=== PATIENT | female | born 1930 | race Caucasian/White ===

== ENCOUNTER 2016-08-06 23:23 | Inpatient (IN) | payer MEDICARE ==
[~2016-08-06] VITALS: Ht 160 cm; Wt 44.1 kg
[2016-08-07] VITALS (20 sets, daily range): BP systolic 96–169; BP diastolic 54–108; PULSE 79–99; RESP 13–22; O2SAT 86–100
[2016-08-07] MEDS ORDERED: oxyCODONE-Acetamin 5-325 mg Tablet PO ONE (00:05)
--- NOTE | 2016-08-07 00:30 | ED.REPORT ---
HPI-Hip/Pelvis Prob/Inj Date of Service Aug 07, 2016 ED Provider: Dr. Edwards Pt is an 86 year old female presenting to the ED via EMS post GLF complaining of right hip pain. Pt has hx of 4 4inch screws in her right hip after she broke it in the past. Denies numbness or tingling in her legs, headache, or loss of consciousness. Nursing Notes Stated Complaint: R HIP PAIN GLF Chief Complaint: Extremity Trauma Nursing Notes Reviewed: Yes Allergies: Uncoded Allergies: PENNICILLIN (Allergy, Intermediate, hives and rash, 08/07/16) SULPHA (Allergy, Intermediate, 08/07/16) General Time Seen by Provider: 00:36 Chief Complaint Hip injury right Hx Obtained From: Patient, EMS Arrived By: Ambulance Onset Occurred: Just prior to arrival Symptom Duration: Since onset Progression Since Onset: Constant Caused by: Fall on ground Quality: Painful Severity: Current: Severe Severity: Maximum: Severe Recent Healthcare: No recent doctor visit, No recent hospitalization Similar Sx Previous: No Past Medical History Past Medical History GI bleed broken her right hip in the past Past Surgical History Right hip surgery requiring 4 4inch screws Reports: Cholecystectomy Smoking History Unknown if Ever Smoker Ambulatory Status Independent Review of Systems Musculoskeletal: Reports: Joint pain Neurologic: Denies: Change LOC, Headache, Numbness, Syncope Complete sys rev & neg: except as marked. Physical Exam Initial Vital Signs Vital Signs (First) Date Time Temp Pulse Resp B/P Pulse Ox O2 Delivery O2 Flow Rate FiO2 08/07/16 00:15 36.6 89 14 148/108 98 Room Air Initial VS: Reviewed General/Constitutional: Well-developed, Well-nourished Head / Eyes: Atraumatic, Normocephalic, PERRL ENT: Mucous membranes moist, Conjunctiva normal, No scleral icterus Respiratory: Breath sounds normal, Clear to auscultation, No respiratory distress Cardiovascular: Regular rate & rhythm, Heart sounds normal, Intact distal pulses Abdomen / GI: Soft, Non-tender, No guarding, No rebound, No distention Upper Extremities: Vascular intact, Neuro intact, No swelling, No tenderness Skin: Warm, Dry, No cyanosis Neurologic: Alert, Oriented, Nonfocal Psychiatric: Mood/affect normal, Behavior normal, Normal thought content Lower Extremity / Pelvis / MS: Neurologic intact, Vascular intact Right Hip: Positive: Tenderness present... (Severe), Negative: Leg externally rotated, Leg shortened Interpretation & Diagnostics Lab Results Interpretation Result Diagram: 08/07/16 0128 Test 08/07/16 01:28 White Blood Count 5.5th/mm3 (3.8-10.1) Red Blood Count 4.01mil/mm3 (3.90-5.20) Hemoglobin 13.0g/dL (12.0-15.6) Hematocrit 38.2% (35.0-46.0) Mean Corpuscular Volume 95.3fL (81-100) Mean Corpuscular Hemoglobin 32.4pg (27.0-35.0) Mean Corpuscular Hemoglobin Concent 34.0% (32.0-37.0) Red Cell Distribution Width 12.8% (12.3-15.4) Platelet Count 239bil/L (150-400) Neutrophils (%) (Auto) 63.6% (40-74) Lymphocytes (%) (Auto) 16.0% (14-46) Monocytes (%) (Auto) 14.7% (4-12) Eosinophils (%) (Auto) 4.4% (0-5) Basophils (%) (Auto) 1.1% (0-3) Urine Color Yellow (YELLOW) Urine Appearance Clear (CLEAR,HAZY) Urine pH 7.0 (5.0-8.0) Urine Specific [place] 1.010 (1.003-1.035) Urine Protein Negativemg/dL (NEG,TRACE) Urine Glucose (UA) Negativemg/dL (NEGATIVE) Urine Ketones Negativemg/dL (NEGATIVE) Urine Occult Blood Negative (NEGATIVE) Urine Nitrite Negative (NEGATIVE) Urine Bilirubin Negative (NEGATIVE) Urine Urobilinogen Normalmg/dL (NORMAL) Urine Leukocyte Esterase Negative (NEGATIVE) Urine RBC 0-2/hpf (0-2) Urine WBC 0-5/hpf (0-5) Urine Epithelial Cells Occasional/hpf (NONE-MOD) Urine Crystals None seen (NONE SEEN) Urine Bacteria None/hpf (NONE-FEW) Urine Hyaline Casts None/lpf (NONE) Urine Granular Casts None seen (NONE SEEN) Urine Waxy Casts None seen (NONE SEEN) Urine Red Blood Cell Casts None seen (NONE SEEN) Urine White Blood Cell Casts None seen (NONE SEEN) Urine Mucus None seen (None Seen) Urine Trichomonas None seen (NONE SEEN) Urine Yeast None (NONE SEEN) Urinalysis Comment ECG Interpretation ECG Interpretation: Probable left atrial enlargement. RBBB and LPFB. Time: 01:45 Interpreted by: ED physician Normal ECG Interpretation: Normal rate (87), Normal sinus rhythm X-Ray Chest Interpretation Chest Xray Interpretation: COPD. No acute findings. Interpretation / Wet Read by: Wet read ED physician X-Ray Interpretation Xray Interpretation: Hip/Pelvis Xray: Impacted subcapital fracture of hip X-Ray Ordered: Hip right Interpretation / Wet Read by: Wet read ED physician Re-Eval/Medical Decision Med Decision/Clinical Course 86-year-old female status post a fracture, screw fixation, and subsequent screw removal, presents after a ground-level fall with hip pain. There is no foreshortening or rotation, but the hip is indeed fracture and an impaction subcapital configuration. Distal sensation and vascularity are normal. She is admitted to the medicine service with consultation orthopedics for operative management. Transported in stable condition. Re-Evaluation/Progress : Time of Eval: 01:10 Patient Status: Condition improved Re-Evaluation/Progress Note: Discussed radiology results and plan for admission and surgery tomorrow. Consultation : Referral / Consult Name: Aubrey Hoffman MD Consulted With: Hospitalist Call Returned at: 01:26 [employer] Hand: Will see patient, Agrees with plan, Accepts admit Note: Pt will have surgery tomorrow. Counseled Regarding: Diagnosis, Lab results, Need for follow-up, When/why to return to ED Discharge & Departure Impression: Primary Impression: Hip fracture, right Encounter type: initial encounter Fracture type: closed Qualified Code: S72.001A - Fracture of unspecified part of neck of right femur, initial encounter for closed fracture Disposition: ADMITTED TO HOSPITAL Discharge Condition All VS Reviewed: Yes Condition: Improved Referrals: NOPCP (PCP) Gurjit Attestation Portions of this note were transcribed by Violet Vázquez. I, Dr. Edwards personally performed the history, physical exam and medical decision-making; I reviewed and confirmed the accuracy of the information in the transcribed note. Signed by: Gurjit Goldstein, 08/07/2016 at 0158. Delmer Edwards MD Aug 07, 2016 00:29 VIOLET VÁZQUEZ Aug 07, 2016 00:43
[2016-08-07] MEDS ORDERED: Ondansetron 2 mg/mL 2 mL Inj IVPUSH ONE (01:05)
[2016-08-07 01:37] LABS: BASOPHILS % (AUTO) 1.1 % (0-3); EOSINOPHILS % (AUTO) 4.4 % (0-5); MONOCYTES % (AUTO) 14.7 % (4-12); Mean Corpuscular Hemoglobin 32.4 pg (27.0-35.0); Mean Corpuscular Volume 95.3 fL (81-100); NEUTROPHILS % (AUTO) 63.6 % (40-74); Platelet Count 239 bil/L (150-400)
[2016-08-07] MEDS: HYDROmorphone 0.5 mg/0.5 mL iSecure Syringe IVPUSH PRN ×3 (01:38→03:43)
[2016-08-07 01:50] LABS: APPEARANCE,URINE CLEAR (CLEAR,HAZY); COLOR,URINE YELLOW (YELLOW); OCCULT BLOOD,URINE NEGATIVE (NEGATIVE); UROBILINOGEN,URINE NORMAL (NORMAL)
[2016-08-07 01:56] LABS: INR 0.94 ratio
[2016-08-07 02:02] LABS: TROPONIN T 0.01 ug/L (0.0-0.011)
[2016-08-07] MEDS ORDERED: Alum-Mag Hydrox-Simeth 30 mL Suspension PO PRN (02:05)
[2016-08-07] MEDS ORDERED: Polyethylene Glycol (PEG) 17 Gm Powder PO PRN ×2 (02:05→10:45)
[2016-08-07] MEDS ORDERED: Ondansetron 2 mg/mL 2 mL Inj IVPUSH PRN ×2 (02:05→10:45)
[2016-08-07] MEDS ORDERED: 0.9% Sodium Chloride 1,000 ML IV SCH (02:05)
[2016-08-07 02:14] LABS: Magnesium 1.9 mg/dL (1.6-2.6)
--- NOTE | 2016-08-07 02:18 | PCM.HPMED ---
Subjective Date of Service Aug 07, 2016 Primary Provider: Admitting Physician: Primary Care Physician: Dalton Attending Physician: Admit Status: From the Emergency Department, Remote Telemetry Chief Complaint: Impacted subcapital fracture right hip secondary to ground-level fall History of Present Illness: Ms. Kraft is an extremely pleasant 86-year-old female with a history of COPD with emphysema, current tobacco use, history of right hip fracture status post repair, and colonic bleed of uncertain etiology that has required transfusions in the past, presented to [facility] with ground-level fall secondary to poor footing. She was admitted for evaluation and treatment of what was found to be a right impacted subcapital fracture of the hip. Hospital day 1 Ms. Kraft shares that she just arrived to [facility] a mere 30 minutes before her ground-level fall which brings her in this evening. She states when she arrived at her family's home, she needed to use the restroom, and on the way , she tripped over her granddaughter's item. Ms. Kraft denies striking her head , loss of consciousness, any other injuries. She notes that she has a pre- existing repair of her right hip, and that injury was also not sustained from episodes of syncope, dysrhythmia, or other biological entity. The initial injury was sustained from an external force which brought her to the ground and caused the fracture. Fracture was actually repaired locally, in [place], by Dr. Murray. For this episode, patient denies any associated fever, chills, nausea, vomiting, diarrhea, constipation, dysuria, acute vision changes, palpitations, chest pain, lightheadedness, or dizziness. She just arrived from [place], [place], which is where she has been residing over recent years. She shares that she is actually scheduled for a procedure at the [facility] this upcoming Saturday, 08/10, with Dr. Jericho Jeronimo. The procedure is described as a scope the only placed through her esophagus into her colon to stop a chronic and subclinical bleed. She is uncertain of the actual diagnosis , but she is in the [facility] to proceed with this procedure. Patient has not been on any blood thinners or aspirin. Other than her history of fall, restless legs, high blood pressure, and COPD with emphysema, she states she is rather healthy and independent at baseline. In the ED, T 36.6, pulse 89, respiratory rate 14, blood pressure 148/108, 98% on room air; initial labs revealed WBC 5.5, hemoglobin 13.0, hematocrit 38.2, platelets 239; CMP pending at time of admission; INR 0.94; UA obtained, negative for occult blood, nitrites, leukocyte esterase, and bacteria. She was in stable condition at time of admission awaiting transfer to floor. Review of Systems: Complete ROS obtained; pertinent positives and negatives as noted above Allergies Coded Allergies: Penicillins (Unverified Allergy, Unknown, Hives, 08/07/16) HIVES AND RASH Sulfa (Sulfonamide Antibiotics) (Unverified Allergy, Unknown, 08/07/16) Home Medications List provided by patient: Ropinirole 0.5 mg 3 times daily Alprazolam 0.5 mg 3 times as needed Citalopram 20 mg once daily Ferrous sulfate 325 mg twice daily Pantoprazole 40 mg daily Rosuvastatin 10 mg nightly/simvastatin 40 mg nightly Valsartan 160 mg daily Vitamin C 500 mg twice daily Super B complex vitamin daily Calcium 600 mg plus vitamin D 3 800 international units 3 times daily Complete multivitamin Spiriva Ventolin PMH History obtained from patient: Colonic bleed of uncertain etiology requiring transfusions History of right hip fracture status post repair Restless leg syndrome High cholesterol Hypertension Surgical History Acute anemia status post transfusions Right hip repair secondary to ground-level fall Cholecystectomy Tonsillectomy Hysterectomy Family History Patient states early of father, possibly cardiac Social History Hx Alcohol Use: No Hx Substance Use: No Smoking Status: Current Every Day Smoker (approximately 0.5 packs per day) Living Arrangement: with Family ([place]) Exam Vital Signs Vital Sign - Last Date Time Temp Pulse Resp B/P Pulse Ox O2 Delivery O2 Flow Rate FiO2 08/07/16 00:15 36.6 89 14 148/108 98 Room Air Exam General: Alert and oriented 3, no acute distress, appears frail and thin HEENT: Atraumatic, sclera anicteric, no conjunctival hemorrhage, he is membranes moist Cardiac: Regular rate and rhythm at time of examination Respiratory: Adequate airflow all cronin, no use of accessory muscles, no wheeze or rhonchi appreciated Abdomen: Soft, nontender, nondistended, thin MSK: Able to move all extremities against gravity Pulses: Radial: Bilateral; posterior tibialis equal and bilateral; capillary refill upper and lower extremities less than 2 seconds Extremities: Thin, no edema appreciated Skin: Warm and dry Neuro: Cranial nerves II through XII grossly intact, facial expression symmetric , speech without slurring Psych: Appropriate mood, affect, and responses to questioning; good insight and judgment Lab and Diagnostics Result Diagram: 08/07/16 0128 Assessment & Plan Ms. Kraft is an extremely pleasant 86-year-old female with a history of COPD with emphysema, current tobacco use, history of right hip fracture status post repair, and colonic bleed of uncertain etiology that has required transfusions in the past, presented to [facility] with ground-level fall secondary to poor footing. She was admitted for evaluation and treatment of what was found to be a right impacted subcapital fracture of the hip. Hospital day 1 Acute right impacted subcapital fracture of hip, present on admission. Under evaluation - Ortho in am - Consult order placed; follow-up with verbal report - NPO - Tele - Continuous pulse ox/pain meds Chronic anemia secondary to nonspecific colon abnormality. Presumed stable - H&H stable on admission - Possibly AVMs? Patient is unsure what the exact Dx is - GI: Dr. Jericho Jeronimo; procedure scheduled 08/10/2016 - Monitor COPD with emphysema. Presumed stable - Duoneb QIDWA + accuneb q2h prn Restless leg syndrome, chronic. Managed - Continue home Requip Severe protein-calorie malnutrition, chronic. Presumed stable - On admit: BMI 16; albumin 4.2 - Dietary consultation to improve nutrition Goals of care - Patient has chosen full code at this time - Her wishes are that she be resuscitated until her family is able to be at her bedside - Some of her family remains in [place]; she would like to give him ample time to come here to see their goodbyes if needed - Family and patient wish assistance in rescheduling procedure, in addition to continuance of care for her return home 08/21/2016 - Patient wishes to return to [place] in August Medication reconciliation not yet completed at time of admission; did continue patient's home Requip, in addition to antianxiety as needed and pain medications as needed PRN: Fever/bowel/pain/nausea DVT: SCDs only at this time GI: PPI Diet: NPO for procedure CODE STATUS: Full code Patient status: Due to severity of presenting symptoms, risk of adverse events, and likely course of care, patient likely to remain in-house greater than 2 nights, patient admitted as inpatient status Pain Evaluation: Adequate Pain Control GI Prophylaxis: Proton Pump Inhibitor Resuscitation Status: CPR: Attempt Resuscitation Attending Statement The patient was seen and examined together with Dr. Caldera on 08/07 and I agree with the history, exam and plan as outlined in the note above. Marisabel Caldera DO Aug 07, 2016 02:18 Aubrey Hoffman MD Aug 07, 2016 03:37
[2016-08-07] MEDS ORDERED: ALPRAZolam 0.5 mg Tablet PO PRN (02:35)
[2016-08-07] MEDS ORDERED: Albuterol 2.5 mg/3 mL Inhalation Solution NEB PRN (02:35)
[2016-08-07] MEDS ORDERED: HYDROmorphone 0.5 mg/0.5 mL iSecure Syringe IVPUSH PRN ×2 (02:35→05:00)
--- NOTE | 2016-08-07 04:24 | NUR ---
Admit Pt arrived on unit at 0245 from ED. She just arrived in [place] and had a fall at her daughters. Pt has a fractured right hip. Pt A/O x4, oriented to room, call light and bed controls. Pt rates px 12/23-01/22. Pt is FULL CODE, but has no advance directive. Medication rec not completed due to Pt not remembering what she takes other than RLS med and ASA and ASA is on hold. She is scheduled for an endosocopy on saturday at [facility] Pt given 0.5ml Dilaudid and has [employer] and tele on. Bed down low, call light in reach. Care continues
[2016-08-07 05:41] LABS: BASOPHILS % (AUTO) 0.4 % (0-3); EOSINOPHILS % (AUTO) 2.1 % (0-5); MONOCYTES % (AUTO) 10.3 % (4-12); Mean Corpuscular Hemoglobin 32.2 pg (27.0-35.0); Mean Corpuscular Volume 95.3 fL (81-100); NEUTROPHILS % (AUTO) 78.6 % (40-74); Platelet Count 234 bil/L (150-400)
[2016-08-07] MEDS: Albuterol-Ipratropium 3 mL Inhalation Solution NEB SCH ×4 (06:00→19:45)
[2016-08-07 06:03] LABS: Magnesium 1.9 mg/dL (1.6-2.6); Phosphorus 3.7 mg/dL (2.5-4.9)
[2016-08-07] MEDS: Pantoprazole 4 mg/mL 10 mL Inj IVPUSH SCH (07:48)
--- NOTE | 2016-08-07 08:30 | NUR ---
LEFT FLOOR TO OR 1mg IV dilaudid was given to patient @ 0755 for 8/10 sharp, stabbing pain. Patient's IV was saline locked. Telemetry box removed. SCD placed on left leg. Consent signed by patient with Dr. Spence. Left in hospital bed to go to OR.
--- NOTE | 2016-08-07 08:35 | PCM.HPANE ---
Patient Data Date of Service: Aug 07, 2016 (0830) Surgeon Admitting Provider:Aubrey Hoffman MD Attending Provider:Aubrey Hoffman MD Primary Care Physician:Dalton Other Provider:Heidi Acosta Anesthesia Reason for Visit R Hip Fracture Ht/WT & BMI Height (Feet): 5 Height (Inches): 3.00 Weight (Kilograms): 42.800 Body Mass Index 16.72 Allergies Coded Allergies: Penicillins (Unverified Allergy, Unknown, Hives, 08/07/16) HIVES AND RASH Sulfa (Sulfonamide Antibiotics) (Unverified Allergy, Unknown, 08/07/16) Past Anesthesia History Anesthesia History: Denies:: Anesthesia Reactions Diabetes History Hx Diabetes?: No MRSA MRSA: No History History of ENT Problems?: Yes HEENT History: Positive for:: Cataracts Sinus Problem Denies:: Dysphagia Glaucoma Denture Type: None Teeth Condition: Missing Teeth Hx of Heart Problems?: Yes Cardiovascular History: Positive for:: Heart Murmur Irregular Heartbeat Denies:: Cardiac Surgery Chest Pain Congestive Heart Failure Edema Hypertension Pacemaker Thrombophlebitis Other Cardiac History: carotid artery Hx of Respiratory Problem?: Yes Respiratory History: Positive for:: Asthma COPD Dyspnea Emphysema Oxygen Administration (prn) Pneumonia (bronchitis 1 mo ago) Use of Inhalers / NEBS Denies:: Chest Surgery Hemoptysis Tuberculosis Hx Neurologic Problems?: No Hx of GI Problems?: Yes Hx of Problems?: No Genitourinary History: Denies:: HX of Hemodialysis Kidney Stones Urinary Tract Infection HX of Peritoneal Dialysis: No Female Hx: Denies:: Currently Hx Musculoskeletal Problems?: Yes Musculoskeletal History: Positive for:: Joint Replacement Denies:: Back Injury Musculoskeletal Trauma Hx of Psycho/Social Problems?: No Psycho Social History: Positive for:: Anxiety Hx Depression Denies:: Bipolar Disorder Suicide Attempt Hx Surgeries?: Yes (Bilateral CEA, hip fx, lap joey) Hx Any Other Health Problems?: Yes Other History: Positive for:: Hospitalization Denies:: Cancer Thyroid Disease History Blood Transfusions: Positive for:: Accept Blood Products? Blood Transfusions Denies:: Blood Transfuse Reaction Hx Diabetes: No Hx Alcohol Use: NoHx Substance Use: No Smoking Status: Current Every Day Smoker (approximately 0.5 packs per day) Have You Smoked inLast 12 mo: YesApprox How Many Cigarettes/day: 20 Stop/Bang Treated for Sleep Apnea?: No Do You Have a CPAP Machine?: No S-Snoring: Do You Snore Loudly: Yes T-Tired: feel tired, fatigued: No O-Obsered: Observed not breath: No P-Blood Pressure: treated: No B- Body Mass Index > 35 kg/m2: No A- Age over 50: Yes N- Neck Large Circumference: No G- Gender Male: No PAULINE Total Score: 1 PAULINE Risk Assessment: Low Risk, <3 Yes Risk Assessment Category Category 1A: Patient has history of documented sleep apnea, and HAS NOT received any narcotic, sedative or anesthesia administration during this stay. Category 1B: Patient has history of documented sleep apnea, and HAS received any narcotic , sedative or anesthesia administration during this stay Category 2: Patient has SUSPECTED Obstructive Sleep Apnea, and HAS received any narcotic , sedative or anesthesia administration during this stay. Category 3: Patient has SUSPECTED Obstructive Sleep Apnea and HAS NOT received narcotic, sedative or anesthesia administration during this stay. Category 4: Outpatient in Procedural Areas with known sleep apnea or who screen positive for High Risk via the STOP/BANG questionnaire. Exam Exam Vital Signs Vital Signs Date Time Temp Pulse Resp B/P Pulse Ox O2 Delivery O2 Flow Rate FiO2 08/07/16 07:01 36.8 92 16 168/86 93 Room Air 08/07/16 03:12 91 08/07/16 02:50 36.8 91 22 169/81 96 Room Air General Appearance: Alert, Oriented X3, Cooperative HEENT/AIRWAY: MP 2 Lungs: Clear to Auscultation Heart: Regular Rate/Rhythm Meds/Labs/Diagnostics Admission Meds Current Medications Oxycodone/ Acetaminophen (Percocet 5-325) 1 tab ONCE ONCE PO Last administered on 08/07/16 00:15; Start 08/07/16 at 00:05; Stop 08/07/16 at 00:06 ; Status DC Ondansetron HCl 4 mg 4 mg ONCE ONCE IVPUSH Last administered on 08/07/16 01: 38; Start 08/07/16 at 01:05; Stop 08/07/16 at 01:07; Status DC Sodium Chloride (Normal Saline) 1,000 ml @ 100 mls/hr Q10H IV Last administered on 08/07/16 03:43; Start 08/07/16 at 02:05 Ropinirole HCl (Requip) 0.5 mg TID PO Last administered on 08/07/16 03:59; Start 08/07/16 at 02:35 Pantoprazole (Protonix Inj) 40 mg DAILY IVPUSH Last administered on 08/07/16 07:48; Start 08/07/16 at 08:30 Labs Test 08/07/16 01:28 08/07/16 05:10 Prothrombin Time 10.0sec (8.1-12.5) Prothromb Time International Ratio 0.94ratio Activated Partial Thromboplast Time 27.1sec (22.8-33.0) Urine Color Yellow (YELLOW) Urine Appearance Clear (CLEAR,HAZY) Urine pH 7.0 (5.0-8.0) Urine Specific [place] 1.010 (1.003-1.035) Urine Protein Negativemg/dL (NEG,TRACE) Urine Glucose (UA) Negativemg/dL (NEGATIVE) Urine Ketones Negativemg/dL (NEGATIVE) Urine Occult Blood Negative (NEGATIVE) Urine Nitrite Negative (NEGATIVE) Urine Bilirubin Negative (NEGATIVE) Urine Urobilinogen Normalmg/dL (NORMAL) Urine Leukocyte Esterase Negative (NEGATIVE) Urine RBC 0-2/hpf (0-2) Urine WBC 0-5/hpf (0-5) Urine Epithelial Cells Occasional/hpf (NONE-MOD) Urine Crystals None seen (NONE SEEN) Urine Bacteria None/hpf (NONE-FEW) Urine Hyaline Casts None/lpf (NONE) Urine Granular Casts None seen (NONE SEEN) Urine Waxy Casts None seen (NONE SEEN) Urine Red Blood Cell Casts None seen (NONE SEEN) Urine White Blood Cell Casts None seen (NONE SEEN) Urine Mucus None seen (None Seen) Urine Trichomonas None seen (NONE SEEN) Urine Yeast None (NONE SEEN) Urinalysis Comment Total Bilirubin 0.2mg/dL (0.0-1.2) Aspartate Amino Transf (AST/SGOT) 25U/L (0-50) Alanine Aminotransferase (ALT/SGPT) 18U/L (0-32) Alkaline Phosphatase 51U/L (25-165) Troponin T 0.010ug/L (0.0-0.011) Total Protein 6.5g/dL (6.4-8.4) Albumin 4.2g/dL (3.4-5.0) Lipase 41U/L (13-60) White Blood Count 9.8th/mm3 (3.8-10.1) Red Blood Count 4.04mil/mm3 (3.90-5.20) Hemoglobin 13.0g/dL (12.0-15.6) Hematocrit 38.5% (35.0-46.0) Mean Corpuscular Volume 95.3fL (81-100) Mean Corpuscular Hemoglobin 32.2pg (27.0-35.0) Mean Corpuscular Hemoglobin Concent 33.8% (32.0-37.0) Red Cell Distribution Width 12.8% (12.3-15.4) Platelet Count 234bil/L (150-400) Neutrophils (%) (Auto) 78.6% (40-74) Lymphocytes (%) (Auto) 8.5% (14-46) Monocytes (%) (Auto) 10.3% (4-12) Eosinophils (%) (Auto) 2.1% (0-5) Basophils (%) (Auto) 0.4% (0-3) Sodium Level 133mEq/L (134-144) Potassium Level 4.4mEq/L (3.5-5.2) Chloride Level 95mEq/L (97-108) Carbon Dioxide Level 22mmol/L (18-29) Blood Urea Nitrogen 10mg/dL (8-27) Creatinine 0.52mg/dL (0.57-1.00) Estimat Glomerular Filtration Rate 160mL/min (>59) Glucose Level 106mg/dL (60-99) Calcium Level 9.8mg/dL (8.5-10.1) Phosphorus Level 3.7mg/dL (2.5-4.9) Magnesium Level 1.9mg/dL (1.6-2.6) Plan Impression Patient chart reviewed, patient interviewed and anesthestic plan with risks, benefits, and alternatives discussed, and informed consent obtained. NPO per Anesth. Guidelines: Yes ASA Physical Status: ASA3 Severe Disease Anesthetic Plan: SAB Bene/Risks/Altern/Consents: Yes HP Complete Prior to Induction: Yes Dmitriy Riley MD Aug 07, 2016 08:35
[2016-08-07] MEDS ORDERED: Lactated Ringer's 500 ML IV PRN (08:39)
[2016-08-07] MEDS ORDERED: Lactated Ringer's 1,000 ML IV SCH (08:39)
--- NOTE | 2016-08-07 08:39 | CONS ---
[address] [address] CONSULTATION REPORT PATIENT: RASHARD PATHAK : 1930 MR#: [id number] ADMIT: 08/07/2016 JOB ID: [id number] DATE OF SERVICE: 08/07/2016 CHIEF COMPLAINT: Right hip pain. HISTORY OF PRESENT ILLNESS: The patient is an 86-year-old female, who was visiting from [place] visiting family who tripped over her granddaughter's wheelchair in the hallway of her daughter's home sustaining a right hip fracture. She normally walks without aids, but was unable to ambulate after the fall and had onset of severe acute pain in her right groin. She has a history of a right femoral neck fracture which was treated with pinning in 1991. 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 She has had cortisone injections for the arthritis. PAST MEDICAL HISTORY: Significant for anemia and a chronic low-grade gastrointestinal bleeding for which she is planning an endoscopy in the near future, also COPD and chronic tobacco use, restless leg syndrome, and hypertension. PAST SURGICAL HISTORY: Includes the right hip surgery as above, cholecystectomy, tonsillectomy, and hysterectomy. PHYSICAL EXAMINATION: Blood pressure 168/86, pulse rate 92, respirations 16, temperature 36.8. She is alert and cooperative in some distress secondary to her hip pain. Oxygen saturation is 88 to 93% on room air. Her breathing is unlabored. Her right hip has pain with any range of motion. Her skin overlying the hip is intact. She is able to move her toes. Sensation to foot is intact. Dorsalis pedis pulse is +2 with regular rhythm. She has no significant edema in the right lower extremity. IMAGING: X-rays demonstrate a right not minimally displaced intertrochanteric fracture with right hip degenerative arthritis. ASSESSMENT: Right hip intertrochanteric fracture. PLAN: We discussed treatment options for this, and I recommend surgical treatment with a dynamic hip screw. We discussed the risks, benefits, and possible complications of the procedure. All questions were answered and the patient would like to proceed as soon as possible. We will begin making arrangements for surgery today.
[2016-08-07] MEDS ORDERED: HYDROmorphone 1 mg/mL Inj IVPUSH PRN (08:40)
[2016-08-07] MEDS ORDERED: EPHEDrine Sulfate 50 mg/mL Inj IVPUSH PRN (08:40)
[2016-08-07] MEDS ORDERED: Phenylephrine 10,000 mCg/mL Inj IVPUSH PRN (08:40)
[2016-08-07] MEDS ORDERED: Dexamethasone 4 mg/mL Inj IVPUSH PRN (08:40)
[2016-08-07] MEDS ORDERED: fentaNYL-PF 50 mCg/mL 2 mL Inj IVPUSH PRN (08:40)
[2016-08-07] MEDS ORDERED: Lactated Ringer's 1,000 ML IV ONE (08:58)
--- NOTE | 2016-08-07 09:17 | DRSVH ---
PROCEDURE: X-RAY CHEST ONE VIEW, PORTABLE ([id number]) INDICATIONS: pre op hip fx TECHNIQUE: One view of the chest was acquired. COMPARISON: None. FINDINGS: Surgical changes and devices: None. Lungs and pleura: No pleural effusions or pneumothorax. Lungs are clear and interstitium is promine nt. Mediastinum: Mediastinal contours appear normal. Heart size is normal. Bones and chest wall: No suspicious bony lesions. Overlying soft tissues appear unremarkable. IMPRESSION: Prominent interstitium which although may be chronic, superimposed interstitial process s uch as pulmonary edema or atypical infection cannot be excluded. Correlate clinically. Dictated by: Padilla James A Interpreted: Kailey Pearl MD on 08/07/2016 at 9:16 Transcribed by: HEMANT on 08/07/2016 at 9:17 Approved by: Kailey Pearl MD, PhD on 08/07/2016 at 11:27
--- NOTE | 2016-08-07 09:17 | DRSVH ---
PROCEDURE: X-RAY PELVIS W/LAT HIP (RT) ([id number]) INDICATIONS: glf, pain TECHNIQUE: AP pelvis with lateral view(s) of the right hip(s). COMPARISON: None. FINDINGS: Bones: Minimally displaced right intertrochanteric hip fracture is present. There is severe narrowin g of the right hip joint and mild narrowing of the contralateral hip. Degenerative changes in the lo wer lumbar spine. Bones are osteopenic. Soft tissues: The visualized bowel gas pattern is normal. No suspicious soft tissue calcifications. Vascular calcifications indicate atherosclerosis. Right upper quadrant surgical clips. IMPRESSION: Minimally displaced right intertrochanteric hip fracture. Dictated by: Padilla STAFFORD Interpreted: Kailey Pearl MD on 08/07/2016 at 9:15 Transcribed by: HEMANT on 08/07/2016 at 9:16 Approved by: Kailey Pearl MD, PhD on 08/07/2016 at 11:27
--- NOTE | 2016-08-07 10:10 | NUR ---
Social Work-attempted initial assessment: Data:EMR Reviewed. Pt is a 86 y/o female who was admitted on 08/07/16 for R Hip fracture. Pt's insurance is [facility] and PCP is not listed. SW attempted to see pt, but pt currently in the OR. Pt normally reside in [place], but was here visiting family. SW to follow up post OR and PT to discuss SNF placement and complete initial assessment. SW will continue to follow. Assessment:Pt who will need SNF at discharge. Plan:SW to follow up post surgery and PT to complete assessment and discuss SNF placement. SW will continue to follow. DEWEY Silva
[2016-08-07] MEDS ORDERED: Ropivacaine-PF 0.5% 30 mL Inj INJ ONE (10:15)
--- NOTE | 2016-08-07 10:25 | PCM.HPANE ---
Patient Data Date of Service: Aug 07, 2016 (1024) Surgeon Admitting Provider:Aubrey Hoffman MD Attending Provider:Aubrey Hoffman MD Primary Care Physician:Dalton Other Provider:Heidi Acosta Anesthesia Reason for Visit R Hip Fracture R HIP FRACTURE Ht/WT & BMI Height (Feet): 5 Height (Inches): 3.00 Weight (Kilograms): 42.800 Body Mass Index 16.72 Allergies Coded Allergies: Penicillins (Unverified Allergy, Unknown, Hives, 08/07/16) HIVES AND RASH Sulfa (Sulfonamide Antibiotics) (Unverified Allergy, Unknown, 08/07/16) Past Anesthesia History Anesthesia History: Denies:: Anesthesia Reactions Diabetes History Hx Diabetes?: No MRSA MRSA: No Medications Home Meds Incl Beta Nelsy: No History History of ENT Problems?: Yes HEENT History: Positive for:: Cataracts Sinus Problem Denies:: Dysphagia Glaucoma Denture Type: None Teeth Condition: Missing Teeth Hx of Heart Problems?: Yes Cardiovascular History: Positive for:: Heart Murmur Irregular Heartbeat Denies:: Cardiac Surgery Chest Pain Congestive Heart Failure Edema Hypertension Pacemaker Thrombophlebitis Other Cardiac History: carotid artery Hx of Respiratory Problem?: Yes Respiratory History: Positive for:: Asthma COPD Dyspnea Emphysema Oxygen Administration (prn) Pneumonia (bronchitis 1 mo ago) Use of Inhalers / NEBS Denies:: Chest Surgery Hemoptysis Tuberculosis Hx Neurologic Problems?: No Hx of GI Problems?: Yes Hx of Problems?: No Genitourinary History: Denies:: HX of Hemodialysis Kidney Stones Urinary Tract Infection HX of Peritoneal Dialysis: No Female Hx: Denies:: Currently Hx Musculoskeletal Problems?: Yes Musculoskeletal History: Positive for:: Joint Replacement Denies:: Back Injury Musculoskeletal Trauma Hx of Psycho/Social Problems?: No Psycho Social History: Positive for:: Anxiety Hx Depression Denies:: Bipolar Disorder Suicide Attempt Hx Surgeries?: Yes (Bilateral CEA, hip fx, lap joey) Hx Any Other Health Problems?: Yes Other History: Positive for:: Hospitalization Denies:: Cancer Thyroid Disease History Blood Transfusions: Positive for:: Accept Blood Products? Blood Transfusions Denies:: Blood Transfuse Reaction Hx Diabetes: No Hx Alcohol Use: NoHx Substance Use: No Smoking Status: Current Every Day Smoker (approximately 0.5 packs per day) Have You Smoked inLast 12 mo: YesApprox How Many Cigarettes/day: 20 Stop/Bang Treated for Sleep Apnea?: No Do You Have a CPAP Machine?: No S-Snoring: Do You Snore Loudly: Yes T-Tired: feel tired, fatigued: No O-Obsered: Observed not breath: No P-Blood Pressure: treated: No B- Body Mass Index > 35 kg/m2: No A- Age over 50: Yes N- Neck Large Circumference: No G- Gender Male: No PAULINE Total Score: 1 PAULINE Risk Assessment: Low Risk, <3 Yes Risk Assessment Category Category 1A: Patient has history of documented sleep apnea, and HAS NOT received any narcotic, sedative or anesthesia administration during this stay. Category 1B: Patient has history of documented sleep apnea, and HAS received any narcotic , sedative or anesthesia administration during this stay Category 2: Patient has SUSPECTED Obstructive Sleep Apnea, and HAS received any narcotic , sedative or anesthesia administration during this stay. Category 3: Patient has SUSPECTED Obstructive Sleep Apnea and HAS NOT received narcotic, sedative or anesthesia administration during this stay. Category 4: Outpatient in Procedural Areas with known sleep apnea or who screen positive for High Risk via the STOP/BANG questionnaire. Low Risk, <3 Yes Exam Exam Vital Signs Vital Signs Date Time Temp Pulse Resp B/P Pulse Ox O2 Delivery O2 Flow Rate FiO2 08/07/16 09:23 92 08/07/16 07:01 36.8 92 16 168/86 93 Room Air 08/07/16 03:12 91 08/07/16 02:50 36.8 91 22 169/81 96 Room Air General Appearance: Alert, Oriented X3, Cooperative HEENT/AIRWAY: MP 2 Lungs: Clear to Auscultation Heart: Regular Rate/Rhythm Meds/Labs/Diagnostics Admission Meds Current Medications Oxycodone/ Acetaminophen (Percocet 5-325) 1 tab ONCE ONCE PO Last administered on 08/07/16 00:15; Start 08/07/16 at 00:05; Stop 08/07/16 at 00:06 ; Status DC Ondansetron HCl 4 mg 4 mg ONCE ONCE IVPUSH Last administered on 08/07/16 01: 38; Start 08/07/16 at 01:05; Stop 08/07/16 at 01:07; Status DC Sodium Chloride (Normal Saline) 1,000 ml @ 100 mls/hr Q10H IV Last administered on 08/07/16 03:43; Start 08/07/16 at 02:05 Ropinirole HCl (Requip) 0.5 mg TID PO Last administered on 08/07/16 03:59; Start 08/07/16 at 02:35 Pantoprazole 40 mg 40 mg DAILY IVPUSH Last administered on 08/07/16 07:48; Start 08/07/16 at 08:30 Lactated Ringer's (Lr) 1,000 ml @ ud STK-MED ONCE IV Last administered on 08/07 08:58; Start 08/07/16 at 08:58; Stop 08/07/16 at 09:52; Status DC Cefazolin Sodium (Ancef Inj) 1 gm STK-MED ONCE IVPUSH Last administered on 08/07 09:29; Start 08/07/16 at 09:29; Stop 08/07/16 at 09:52; Status DC Ropivacaine (Naropin 0.5% Inj) 30 ml STK-MED ONCE INJ Last administered on 08/07 10:08; Start 08/07/16 at 10:08; Stop 08/07/16 at 10:09; Status DC Labs Test 08/07/16 01:28 08/07/16 05:10 Prothrombin Time 10.0sec (8.1-12.5) Prothromb Time International Ratio 0.94ratio Activated Partial Thromboplast Time 27.1sec (22.8-33.0) Urine Color Yellow (YELLOW) Urine Appearance Clear (CLEAR,HAZY) Urine pH 7.0 (5.0-8.0) Urine Specific [place] 1.010 (1.003-1.035) Urine Protein Negativemg/dL (NEG,TRACE) Urine Glucose (UA) Negativemg/dL (NEGATIVE) Urine Ketones Negativemg/dL (NEGATIVE) Urine Occult Blood Negative (NEGATIVE) Urine Nitrite Negative (NEGATIVE) Urine Bilirubin Negative (NEGATIVE) Urine Urobilinogen Normalmg/dL (NORMAL) Urine Leukocyte Esterase Negative (NEGATIVE) Urine RBC 0-2/hpf (0-2) Urine WBC 0-5/hpf (0-5) Urine Epithelial Cells Occasional/hpf (NONE-MOD) Urine Crystals None seen (NONE SEEN) Urine Bacteria None/hpf (NONE-FEW) Urine Hyaline Casts None/lpf (NONE) Urine Granular Casts None seen (NONE SEEN) Urine Waxy Casts None seen (NONE SEEN) Urine Red Blood Cell Casts None seen (NONE SEEN) Urine White Blood Cell Casts None seen (NONE SEEN) Urine Mucus None seen (None Seen) Urine Trichomonas None seen (NONE SEEN) Urine Yeast None (NONE SEEN) Urinalysis Comment Total Bilirubin 0.2mg/dL (0.0-1.2) Aspartate Amino Transf (AST/SGOT) 25U/L (0-50) Alanine Aminotransferase (ALT/SGPT) 18U/L (0-32) Alkaline Phosphatase 51U/L (25-165) Troponin T 0.010ug/L (0.0-0.011) Total Protein 6.5g/dL (6.4-8.4) Albumin 4.2g/dL (3.4-5.0) Lipase 41U/L (13-60) White Blood Count 9.8th/mm3 (3.8-10.1) Red Blood Count 4.04mil/mm3 (3.90-5.20) Hemoglobin 13.0g/dL (12.0-15.6) Hematocrit 38.5% (35.0-46.0) Mean Corpuscular Volume 95.3fL (81-100) Mean Corpuscular Hemoglobin 32.2pg (27.0-35.0) Mean Corpuscular Hemoglobin Concent 33.8% (32.0-37.0) Red Cell Distribution Width 12.8% (12.3-15.4) Platelet Count 234bil/L (150-400) Neutrophils (%) (Auto) 78.6% (40-74) Lymphocytes (%) (Auto) 8.5% (14-46) Monocytes (%) (Auto) 10.3% (4-12) Eosinophils (%) (Auto) 2.1% (0-5) Basophils (%) (Auto) 0.4% (0-3) Sodium Level 133mEq/L (134-144) Potassium Level 4.4mEq/L (3.5-5.2) Chloride Level 95mEq/L (97-108) Carbon Dioxide Level 22mmol/L (18-29) Blood Urea Nitrogen 10mg/dL (8-27) Creatinine 0.52mg/dL (0.57-1.00) Estimat Glomerular Filtration Rate 160mL/min (>59) Glucose Level 106mg/dL (60-99) Calcium Level 9.8mg/dL (8.5-10.1) Phosphorus Level 3.7mg/dL (2.5-4.9) Magnesium Level 1.9mg/dL (1.6-2.6) Plan Impression Patient chart reviewed, patient interviewed and anesthestic plan with risks, benefits, and alternatives discussed, and informed consent obtained. NPO per Anesth. Guidelines: Yes ASA Physical Status: ASA3 Severe Disease Anesthetic Plan: SAB Bene/Risks/Altern/Consents: Yes HP Complete Prior to Induction: Yes Dmitriy Riley MD Aug 07, 2016 10:25
--- NOTE | 2016-08-07 10:28 | PCM.ANEP1 ---
Post Anesthesia Phase 1 PACU Phase 1 Assessment Date of Service: Aug 07, 2016 (1024) Vital Signs 36.9, 94, 10, 100%, 147/117 Vital Signs Date Time Temp Pulse Resp B/P Pulse Ox O2 Delivery O2 Flow Rate FiO2 08/07/16 09:23 92 08/07/16 07:01 36.8 92 16 168/86 93 Room Air 08/07/16 03:12 91 08/07/16 02:50 36.8 91 22 169/81 96 Room Air Anesthetic Administered: GA Level of Alertness: Sleepy, easy to arouse CHOUDHURY's with Equal Strength: No Pain: No Pain Scale Score: 0 Nausea or Vomiting: No Cardiovascular Function and Hy: Yes Oxygen Delivery: Simple Mask Lungs: Clear to Auscultation Summary SAB didn't take so converted to GA. Pt reports no pain post op. Complications: No Follow up Care: No Patient Instructions Provided: Yes (by RN) Dmitriy Riley MD Aug 07, 2016 10:28
[2016-08-07] MEDS ORDERED: Ketorolac 15 mg/mL Inj IVPUSH PRN (10:45)
[2016-08-07] MEDS ORDERED: HYDROmorphone 2 mg/mL Inj IVPUSH PRN (10:45)
[2016-08-07] MEDS ORDERED: Magnesium Hydroxide 10 mL Oral Concentration PO PRN (10:45)
[2016-08-07] MEDS ORDERED: diphenhydrAMINE 25 mg Capsule PO PRN (10:45)
--- NOTE | 2016-08-07 11:00 | NUR ---
POST OP Patient returned from PACU on hospital bed. Alert and talking, disoriented. Unsure of why her legs felt so heavy and unable to move them. Patient had spinal and general anesthesia. Was on 2 LPM O2 when returned. Placed on CPOX. Taylor catheter in place and draining. ABD dressing present to R hip, no drainage-C/D/I. Ice pack to R hip. No complaints of pain. IV fluids restarted. Reoriented to room. Continue to monitor.
--- NOTE | 2016-08-07 11:40 | OP ---
[address] [address] OPERATIVE REPORT PATIENT: RASHARD PATHAK : 1930 MR#: [id number] ADMIT: 08/07/2016 JOB ID: [id number] DATE OF SURGERY: 08/07/2016 PREOPERATIVE DIAGNOSIS(ES): Right intertrochanteric hip fracture. POSTOPERATIVE DIAGNOSIS(ES): Right intertrochanteric hip fracture. PROCEDURE: Right hip dynamic hip screw. SURGEON: Haider Spence DO ANESTHESIA: General. INDICATIONS: The patient is an 86-year-old female, who was visiting her family from [place] and fell, injuring her right hip. She was unable to ambulate after the fall. She had a previous right femoral neck fracture which was treated with cannulated screws many, many years ago. The implant had subsequently been removed. We discussed risks, benefits, and possible complications of surgery. All questions were answered. She wished to proceed. PROCEDURE IN DETAIL: The patient was brought to the operating room. She was given a preoperative antibiotic. An attempt was made at a spinal. However, she continued to have pain, and she was converted to a general anesthetic. The patient was placed on the fracture table and the right hip was sterilely prepped and draped. An incision was made over her previous surgical incision over the lateral hip. Dissection was carefully carried through the subcutaneous tissue. She had a bit of scarring which was dissected free and the IT band was incised, and then the vastus lateralis was incised in line with the skin incision. Dissection was carried down onto the femur. A guide pin for 135 degree dynamic hip screw was placed into the center-center position of the head. This was over-reamed, and then an 80 mm lag screw was placed, followed by 135 degree angled 2-hole dynamic hip screw plate. This was secured with two 4.5 screws into the shaft of the femur, yielding excellent fixation and excellent reduction. The wound was then irrigated, and confirmation was made with biplane fluoroscopy. The wound was then closed with running 0 Vicryl to repair the vastus lateralis and the second 0 Vicryl to repair the iliotibial band. The subcu was closed with 2-0 Vicryl and the skin was closed with kareen. Naropin was added as an adjunct local anesthetic. Sterile dressings were applied. The patient tolerated the procedure well. BLOOD LOSS: 50 cc. POSTOPERATIVE PROTOCOL: We will have the patient weightbear to tolerance. Use a walker for ambulation. Plan to use Lovenox for DVT prophylaxis for 21 days postoperatively.
[2016-08-07] MEDS: 0.9% Sodium Chloride 1,000 ML IV SCH ×2 (11:46→20:43)
[2016-08-07 12:23] LABS: APPEARANCE,URINE CLEAR (CLEAR,HAZY); COLOR,URINE YELLOW (YELLOW); OCCULT BLOOD,URINE NEGATIVE (NEGATIVE); UROBILINOGEN,URINE NORMAL (NORMAL)
[2016-08-07] MEDS ORDERED: SIMV40TA5 PO (13:49)
[2016-08-07] MEDS ORDERED: ROPI0.5T2 PO (13:49)
[2016-08-07] MEDS ORDERED: ALPR0.5T8 PO (13:49)
[2016-08-07] MEDS ORDERED: IPRA3AMP IH (13:49)
[2016-08-07] MEDS ORDERED: ASCO100089 PO (13:49)
[2016-08-07] MEDS ORDERED: CITA20TA11 PO (13:49)
[2016-08-07] MEDS ORDERED: ALBU18HF INH (13:49)
[2016-08-07] MEDS ORDERED: VIT1TABL83 PO (13:49)
[2016-08-07] MEDS ORDERED: CALC-1009 PO (13:49)
[2016-08-07] MEDS ORDERED: PANT40TA3 PO (13:49)
[2016-08-07] MEDS ORDERED: TIOT18CA3 IH (13:49)
[2016-08-07] MEDS ORDERED: MULT-666 PO (13:49)
[2016-08-07] MEDS ORDERED: FERR325T6 PO (13:49)
[2016-08-07] MEDS ORDERED: VALS160T23 PO (13:49)
[2016-08-07] MEDS ORDERED: fentaNYL-PF 50 mCg/mL 2 mL Inj ONE (14:31)
[2016-08-07] MEDS ORDERED: EPHEDrine/NS 5 mg/mL 5 mL Syringe ONE (14:31)
[2016-08-07] MEDS ORDERED: Ketamine 10 mg/mL 20 mL Inj ONE (14:31)
[2016-08-07] MEDS ORDERED: Propofol 10,000 mCg/mL 20 mL Inj ONE (14:31)
--- NOTE | 2016-08-07 15:00 | NUR ---
NUTRITION ASSESSMENT: ASSESS: Pt is an 86yo F admitted for r. hip fracture. Pt had surgery today. She reported that she has always been small but that recently she has been losing wt due to stress and gastrointestinal bleeding. She has been trying to gain wt by eating ice cream, drinking ensure, adding protein powder to foods, drinking whole milk, etc. She is currently on a CL diet but reported that she tolerated it well and is hoping to have her diet advanced to general for dinner tonight. She reported that she is very hungry. PMHX: COPD, colonic bleed, HTN, RLS LABS: Reviewed. Na 133, Cl 95, Mica Splitter .52, Glu 106, Alb 4.2 MEDS: Reviewed. GI: 0 BM recorded SKIN: Shane 13 CURRENT WTS: 42.8kg, BMI 16.7kg/m2, IBW: 52.3kg DIET: CL, PO 100% EST. NEEDS: wt gain Kcals: 1285-1500kcal/day (30-35kcal/kg) Pro: 60-80g/day (1.2-1.5g/kg IBW) NUTRITION DIAGNOSIS: 1.) Unintentional wt loss related to altered GI function and stress as evidence by BMI of 16.7kg/m2 and pt reported losing wt due to increased stress and GI bleed NUTRITION INTERVENTION: 1.) Spoke with pt about ways to increase kcal/pro intake for wt gain. Pt is already eating a high kcal/pro diet and reports a good appetite. High kcal/pro recipe book and high kcal/pro nutrition therapy handouts provided. 2.) Recommend advance diet when medically appropriate. Will add Vanilla Ensure on all trays once diet is advanced from CL per pt preference MONITOR / EVAL: diet advance, supps, wt, gi, POC, nutrition status. Will continue to monitor per moderate nutrition risk guidelines
--- NOTE | 2016-08-07 15:06 | NUR ---
Social Work-initial assessment: Data:See initial assessment. Pt is a 86 y/o female who was admitted on 08/07/16 for R Hip fracture. Pt's insurance is [facility] and PCP is Loli Segal MD. EMR Reviewed. SW met with pt and great grandson at bedside to discuss discharge planning, SW role explained. Pt is alert and oriented x3. Pt resides at home in [place], but is currently down visiting family. Pt is staying with friend who is like a daughter to pt Dina who has a single level home that is handicap accessible. Dina has extra w/c for pt. Pt does not use any DME and does not drive. Pt has no HH or SNF history. pt has no intermission coordinator care insurance or VA benefits. SW discussed DPOA/ advanced directive, pt confirms she has completed this. PT evaluation is pending. SW to follow up tomorrow post PT. Phone number and plan written on white board in room. SW will continue to follow. Assessment:Pt who is independent at baseline. Plan:SW to follow up tomorrow post PT. SW will continue to follow. DEWEY Silva Addendum: 08/07/16 at 1510 by JOSE RAMON ANDRADE Amended: Links added.
[2016-08-07] MEDS ORDERED: ASCO500C6 PO (15:28)
[2016-08-07] MEDS: CeFAZolin Inj 1 GM in IV Premix 1 EACH IV SCH (15:41)
[2016-08-07] MEDS: HYDROcodone-APAP 5-325 mg Tablet PO PRN ×2 (15:43→21:09)
--- NOTE | 2016-08-07 15:56 | NUR ---
Evaluation completed. Please go to "Notes" then click on "Assessments and Notes" (bottom left corner of screen). Then select appropriate discipline tab on top of screen.
[2016-08-07] MEDS: Sodium Chloride LOK Flush 10 mL Syringe IV SCH ×2 (16:30→23:14)
[2016-08-07] MEDS ORDERED: 0.9% Sodium Chloride 0 ML ONE (16:58)
[2016-08-07] MEDS: hydrOXYzine Pamoate 25 mg Capsule PO PRN (21:09)
[2016-08-07] MEDS: Senna-Docusate 8.6-50 mg Tablet PO SCH (21:09)
[2016-08-08] VITALS (10 sets, daily range): BP systolic 96–148; BP diastolic 54–73; PULSE 78–92; RESP 16–18; O2SAT 91–98
[2016-08-08] MEDS: CeFAZolin Inj 1 GM in IV Premix 1 EACH IV SCH (00:30)
--- NOTE | 2016-08-08 01:13 | NUR ---
Activity/Pain Pt reporting extreme pain and spasms to right hip. rec'd norco and vistaril with + effects. Pt sleeping this shift comfortably. Pt did not get OOB. Will forward to AM nurse regarding catheter D/C as Pt is not up and moving as orders say. Care continues
[2016-08-08] MEDS: hydrOXYzine Pamoate 25 mg Capsule PO PRN ×3 (04:45→22:29)
[2016-08-08] MEDS: HYDROcodone-APAP 5-325 mg Tablet PO PRN ×4 (04:46→22:29)
--- NOTE | 2016-08-08 06:09 | PCM.PNORTH ---
Subjective Date of Service: Aug 08, 2016 Visit Information: Reason for Visit R Hip Fracture Surgery/Surgery Date R HIP ORIF 08/07/16 Post-Op Day # Date of Admission: Aug 07, 2016 at 02:08 Hospital Day # Subjective Found patient awake and alert and sitting up in bed. No complaints of pain. Patient is very pleasant and talkative and aware of her condition and surroundings. Patient indicates she has fractured her right hip in the past and was repaired with a pinning. I explained to her that there is a different type of hardware in her hip at this point and we have encouraged her to participate with therapy. I have advised patient that she and the discharge planners and her family will help decide on the best discharge disposition as her rehabilitation progresses. Postop General: No Complaints, No Shortness of Breath, No Chest Pain Pain Management: PO Objective Exam Objective Alert and oriented 3 and pleasant. Interoperative dressing is clean dry and intact. Calf and thigh are soft and nontender. Toe wiggle and sensation are intact at right lower extremity distally. SCDs are not in place. Taylor is in place and working Gait 2 feet with physical therapy on 08/08/2015 Vital Signs and I/O Vital Sign - Last Date Time Temp Pulse Resp B/P Pulse Ox O2 Delivery O2 Flow Rate FiO2 08/08/16 05:28 37.3 86 16 111/57 92 Room Air 08/07/16 20:37 1.00 Intake and Output 08/07/16 08/07/16 08/08/16 Cumulative From/Thru 15:00 23:00 07:00 08/07/16 00:15 - 08/07/16 18:15 Intake Total 1196 ml 1415 ml 2800 ml Output Total 550 ml 500 ml 1050 ml Balance 646 ml 915 ml 1750 ml Intake Oral 840 ml 840 ml IV Total 1196 ml 575 ml 1960 ml Output Urine Total 500 ml 500 ml 1000 ml Estimated Blood Loss 50 ml 50 ml # Voids 1 Lab & Micro Results Laboratory Tests Test 08/07/16 11:40 08/08/16 05:45 Urine Color Yellow (YELLOW) Urine Appearance Clear (CLEAR,HAZY) Urine pH 6.0 (5.0-8.0) Urine Specific Hazel 1.015 (1.003-1.035) Urine Protein Negativemg/dL (NEG,TRACE) Urine Glucose (UA) Negativemg/dL (NEGATIVE) Urine Ketones 15mg/dL (NEGATIVE) Urine Occult Blood Negative (NEGATIVE) Urine Nitrite Negative (NEGATIVE) Urine Bilirubin Negative (NEGATIVE) Urine Urobilinogen Normalmg/dL (NORMAL) Urine Leukocyte Esterase Negative (NEGATIVE) Urine RBC 0-2/hpf (0-2) Urine WBC 0-5/hpf (0-5) Urine Epithelial Cells Occasional/hpf (NONE-MOD) Urine Crystals None seen (NONE SEEN) Urine Bacteria None/hpf (NONE-FEW) Urine Hyaline Casts Occasional/lpf (NONE) Urine Granular Casts None seen (NONE SEEN) Urine Waxy Casts None seen (NONE SEEN) Urine Red Blood Cell Casts None seen (NONE SEEN) Urine White Blood Cell Casts None seen (NONE SEEN) Urine Mucus Present (None Seen) Urine Trichomonas None seen (NONE SEEN) Urine Yeast None (NONE SEEN) Urinalysis Comment None Urine Culture Reflexed Not indicated Result Diagram: 08/07/16 0510 08/07/16 0510 General Appearance: Alert, Oriented X3, Cooperative, No Acute Distress Extremities: No Compartment Syndrom Noted, Thigh & Calf Soft/Nontender Postop Sensory Motor: Distal Motor Intact, Movement in Toes, Distal Sensation Intact Activity: Activity per PT, Ambulate with PT (weightbearing as tolerated on the right lower extremity using a front-wheeled walker.) Catheters: Urethral [address] Way Taylor Assessment & Plan Impression Kellie Kraft is a very pleasant and talkative 86-year-old female who has suffered a right hip fracture with a dynamic hip screw placement on 08/07/2016. She has suffered a hip fracture in the past which was in. She is independent at baseline and may discharge to her daughter's home when appropriate. Problems: Plan Postoperative day #1 from right hip fracture with dynamic hip screw placement on 08/07/[address] Haider Spence. Weight-bear as tolerated on the right lower extremity using front-wheeled walker. Continue formal physical therapy for mobility, gait and safety. Continue by mouth pain medication as needed in the form of [place] 5 and Vistaril. Grade IV pain medication. Continue Lovenox 40 mg subcutaneous daily 3 weeks postop with transition to ASA 325 mg twice a day for an additional 3 weeks totaling 6 weeks postoperative DVT prophylaxis. Interoperative dressing will be changed on postop day #2. No Taylor will be discontinued today on postop day #1 after physical therapy. Patient may use BSC if needed. Social service consult requested to help coordinate patient's discharge venue to daughter's home versus other. Nursing please measure for bilateral PETRA hose as ordered today. Nursing please discontinue Taylor catheter after first physical therapy session. May use BSC if needed Nursing please apply SCD at left lower extremity if this is not causing pain Follow-up in 2 weeks at [facility] orthopedic clinic with mid-level provider for wound check and suture removal. Follow-up in 6 weeks at [facility] orthopedic clinic with Dr. Haider Stern with AP pelvis and right crosstable lateral hip x-rays on arrival Orthopedics thanks hospitalist service for their help in the medical management of this patient. Anticipate discharge to daughter's home by hospitalist service on or before postop day #3 if patient is medically stable to so. VTE Prophylaxis: Sub-Q Enoxaparin (Lovenox 40 mg subcutaneous daily 3 weeks postop with transition to ASA 325 mg EC by mouth twice a day for an additional 3 weeks totaling 6 weeks postoperative DVT prophylaxis.), SCDs, PETRA Hose Resuscitation Status: CPR: Attempt Resuscitation Ian Kwok PA-C Aug 08, 2016 06:09
[2016-08-08 06:15] LABS: BASOPHILS % (AUTO) 0.6 % (0-3); EOSINOPHILS % (AUTO) 4.6 % (0-5); MONOCYTES % (AUTO) 17.8 % (4-12); Mean Corpuscular Hemoglobin 31.8 pg (27.0-35.0); Mean Corpuscular Volume 97.2 fL (81-100); NEUTROPHILS % (AUTO) 65.3 % (40-74); Platelet Count 167 bil/L (150-400)
[2016-08-08] MEDS: 0.9% Sodium Chloride 1,000 ML IV SCH ×2 (06:43→16:43)
[2016-08-08] MEDS: Albuterol-Ipratropium 3 mL Inhalation Solution NEB SCH ×4 (08:04→20:03)
[2016-08-08] MEDS: Pantoprazole 4 mg/mL 10 mL Inj IVPUSH SCH (09:03)
[2016-08-08] MEDS: Sodium Chloride LOK Flush 10 mL Syringe IV SCH ×2 (09:04→16:12)
[2016-08-08] MEDS: Senna-Docusate 8.6-50 mg Tablet PO SCH ×2 (09:09→20:30)
--- NOTE | 2016-08-08 13:18 | PCM.PNMED ---
Subjective Date of Service Aug 08, 2016 Subjective Denies any new issues/complaints Exam Vital Signs Vital Sign - Last Date Time Temp Pulse Resp B/P Pulse Ox O2 Delivery O2 Flow Rate FiO2 08/08/16 13:07 Room Air 08/08/16 12:11 37.2 87 18 148/60 94 08/07/16 20:37 1.00 Intake and Output 08/07/16 08/07/16 08/08/16 Cumulative From/Thru 15:00 23:00 07:00 08/07/16 00:15 - 08/08/16 06:31 Intake Total 1196 ml 1415 ml 1368 ml 4168 ml Output Total 550 ml 500 ml 1400 ml 2450 ml Balance 646 ml 915 ml -32 ml 1718 ml Intake Oral 840 ml 400 ml 1240 ml IV Total 1196 ml 575 ml 968 ml 2928 ml Output Urine Total 500 ml 500 ml 1400 ml 2400 ml Estimated Blood Loss 50 ml 50 ml # Voids 1 # Bowel Movements 0 0 General: Alert, Oriented X3, Cooperative, No Acute Distress Head: Normal Eyes: Scleral Anicteric Nose: Mucous Membr Moist/[place] Mouth: Mucous Membr Moist/[place] Neck: Supple Chest & Lungs: Chest Wall Normal, Clear to auscultation & percussion Cardiovascular: Regular Rate/Rhythm Abdomen: Non-tender, Non-distended, Normoactive bowel tones, Soft Extremities: No cyanosis/clubbing/edma bilat Neurological: Grossly Neurologically Intact, Normal Speech IVs and Medications Medications Reviewed: Medications were reviewed in detail Lab and Diagnostics Result Diagram: 08/08/16 0545 08/08/16 0545 Assessment & Plan 86-year-old female with a history of COPD with emphysema, current tobacco use, history of right hip fracture status post repair, and colonic bleed of uncertain etiology that has required transfusions in the past, presented to [facility] with ground-level fall secondary to poor footing. She was admitted for evaluation and treatment of what was found to be a right impacted subcapital fracture of the hip. # Acute right impacted subcapital fracture of hip, present on admission. - Post right intertrochanteric hip fracture on 08/07/16 - Appreciate ortho consult. Will followup with recommendations - Continue with post-op supportive care - PT - Weight-bear as tolerated on the right lower extremity using front-wheeled walker. - Continue Lovenox 40 mg subcutaneous daily 3 weeks postop with transition to ASA 325 mg twice a day for an additional 3 weeks totaling 6 weeks postoperative DVT prophylaxis. - Follow-up in 2 weeks at [facility] orthopedic clinic with mid-level provider for wound check and suture removal. - Follow-up in 6 weeks at [facility] orthopedic clinic with Dr. Haider Stern with AP pelvis and right crosstable lateral hip x-rays on arrival # Chronic anemia secondary to nonspecific colon abnormality. - H&H mildly less likely due to hemodilution - Possibly AVMs? Patient is unsure what the exact Dx is - GI: Dr. Jericho Jeronimo; procedure scheduled 08/10/2016 - Further followup as outpatient. # COPD with emphysema. Stable - Duoneb QIDWA + accuneb q2h prn # Restless leg syndrome, chronic. Managed - Continue home Requip # Severe protein-calorie malnutrition, chronic. Presumed stable - On admit: BMI 16; albumin 4.2 - Dietary consultation to improve nutrition Dispo: likely SNF in 2 days GI Prophylaxis: Proton Pump Inhibitor VTE Prophylaxis: Sub-Q Enoxaparin (Lovenox 40 mg subcutaneous daily 3 weeks postop with transition to ASA 325 mg EC by mouth twice a day for an additional 3 weeks totaling 6 weeks postoperative DVT prophylaxis.), SCDs, PETRA Mcneill VTE Mechanical Devices: Intermittant Pneumatic CD Resuscitation Status: CPR: Attempt Resuscitation Timo West Aug 08, 2016 13:18
--- NOTE | 2016-08-08 15:05 | NUR ---
Social Work: Continued Discharge Planning Data: Pt is on day 2 of hospitalization. Pt was visiting from [place] when she fell and was admitted to hospital. Pt confirms she is staying with daughter in [place] for time of visit. SW notes that PT recommended SNF/HH. SW also notes that additional PT has been ordered to determine needs at discharge. SW met with pt to discuss PT recommendation for SNF or HH. Pt confirmed she can stay with daughter in [place] until she is able to travel back home to [place]. SW confirmed with pt that PT is recommending SNF or HH. Pt stated that she would like to go home with daughter and daughter is able to drive pt to outpatient PT. SW told pt that PT still has another order to meet with pt to better determine needs at discharge. Pt was agreeable to meeting with PT to narrow down SNF/HH recommendation. Assessment: PT is ordered to see pt again to further determine need. Pt stated she is willing to go to [facility] in [place] and do outpatient PT. Daughter will be able to transport pt to outpatient PT. Pt will wait for additional PT appointment to determine SNF/HH moving forward. Pt would like another meeting with PT to consider SNF/HH vs outpatient PT. Plan: SW to follow-up with pt once additional PT order is complete. Pt would like to go to [facility] and do outpatient PT until she is ready to go home to [place]. Pt is agreeable to consider SNF/HH once PT has conducted additional evaluation. DEWEY Douglas
[2016-08-09] VITALS (11 sets, daily range): BP systolic 95–135; BP diastolic 54–74; PULSE 77–95; RESP 15–20; O2SAT 90–97
[2016-08-09] MEDS: Sodium Chloride LOK Flush 10 mL Syringe IV SCH ×3 (01:51→16:11)
[2016-08-09] MEDS: 0.9% Sodium Chloride 1,000 ML IV SCH ×3 (02:43→22:43)
[2016-08-09] MEDS: hydrOXYzine Pamoate 25 mg Capsule PO PRN ×4 (03:25→22:10)
[2016-08-09] MEDS: HYDROcodone-APAP 5-325 mg Tablet PO PRN ×4 (03:28→22:11)
[2016-08-09 05:39] LABS: BASOPHILS % (AUTO) 0.9 % (0-3); EOSINOPHILS % (AUTO) 5.7 % (0-5); MONOCYTES % (AUTO) 16.6 % (4-12); Mean Corpuscular Hemoglobin 32.5 pg (27.0-35.0); Mean Corpuscular Volume 96.8 fL (81-100); NEUTROPHILS % (AUTO) 57.7 % (40-74); Platelet Count 168 bil/L (150-400)
--- NOTE | 2016-08-09 05:59 | NUR ---
Pain Patient reluctant to shift weight off hip, NAC and I "Floated" patient in addition to other positions. Patient also c/o persistent burning, tingling, numbness to right lateral patella. Attempted readjusting leg in few possible positions, feeling has not improved, pedal pulse present but weak. Will continue to monitor.
[2016-08-09] MEDS: Albuterol-Ipratropium 3 mL Inhalation Solution NEB SCH ×4 (07:59→19:17)
[2016-08-09] MEDS: Senna-Docusate 8.6-50 mg Tablet PO SCH ×2 (08:30→20:58)
[2016-08-09] MEDS: Pantoprazole 4 mg/mL 10 mL Inj IVPUSH SCH (09:48)
--- NOTE | 2016-08-09 13:36 | NUR ---
faxed clinicals to [facility]. Addendum: 08/09/16 at 1639 by ANNE MARIE HERMAN Per Allyson at [facility] they are able to accept the pt. Pt can not smoke there will need patch at dc. advised SUPPORT MERCHANDISER>
--- NOTE | 2016-08-09 14:00 | PCM.PNORTH ---
Subjective Date of Service: Aug 09, 2016 Visit Information: Reason for Visit R Hip Fracture Surgery/Surgery Date R HIP ORIF 08/07/16 Post-Op Day # Date of Admission: Aug 07, 2016 at 02:08 Hospital Day # Subjective Status post day #2 right hip dynamic screw. Patient states she is feeling a lot better than she was yesterday. Still has not been able to walk very far but her pain is better controlled. She states that she would "go home with her sister who has wheelchair access and currently has the entire house set up to accommodate wheelchairs due to her granddaughter. She will plan to stay here for the 2 week appointment and follow up in [place] as that is where she is from for the 6 week appointment. Postop General: No Complaints, No Shortness of Breath, No Chest Pain Pain Management: PO Objective Exam Objective Patient is alert and oriented 3. Answering questions appropriately. Patient is sitting up in the bed and not in acute distress today. Dressing is clean dry and intact. Calf is soft and nontender. Sensation and pulses intact, patient able to wiggle toes. Vital Signs and I/O Vital Sign - Last Date Time Temp Pulse Resp B/P Pulse Ox O2 Delivery O2 Flow Rate FiO2 08/09/16 11:53 36.5 89 18 95/55 92 08/09/16 11:30 Room Air 08/07/16 20:37 1.00 Intake and Output 08/08/16 08/08/16 08/09/16 Cumulative From/Thru 15:00 23:00 07:00 08/07/16 00:15 - 08/09/16 05:08 Intake Total 1040 ml 560 ml 5768 ml Output Total 1350 ml 1000 ml 4800 ml Balance -310 ml -440 ml 968 ml Intake Oral 1040 ml 560 ml 2840 ml IV Total 2928 ml Output Urine Total 1350 ml 1000 ml 4750 ml Estimated Blood Loss 50 ml # Voids 1 # Bowel Movements 0 Lab & Micro Results Laboratory Tests Test 08/09/16 05:12 White Blood Count 5.6th/mm3 (3.8-10.1) Red Blood Count 3.14mil/mm3 (3.90-5.20) Hemoglobin 10.2g/dL (12.0-15.6) Hematocrit 30.4% (35.0-46.0) Mean Corpuscular Volume 96.8fL (81-100) Mean Corpuscular Hemoglobin 32.5pg (27.0-35.0) Mean Corpuscular Hemoglobin Concent 33.6% (32.0-37.0) Red Cell Distribution Width 12.8% (12.3-15.4) Platelet Count 168bil/L (150-400) Neutrophils (%) (Auto) 57.7% (40-74) Lymphocytes (%) (Auto) 18.9% (14-46) Monocytes (%) (Auto) 16.6% (4-12) Eosinophils (%) (Auto) 5.7% (0-5) Basophils (%) (Auto) 0.9% (0-3) Sodium Level 132mEq/L (134-144) Potassium Level 4.5mEq/L (3.5-5.2) Chloride Level 94mEq/L (97-108) Carbon Dioxide Level 25mmol/L (18-29) Blood Urea Nitrogen 7mg/dL (8-27) Creatinine 0.41mg/dL (0.57-1.00) Estimat Glomerular Filtration Rate 211mL/min (>59) Glucose Level 104mg/dL (60-99) Calcium Level 9.0mg/dL (8.5-10.1) Result Diagram: 08/09/1651108/09/16511 Activity: Activity per PT, Ambulate with PT (weightbearing as tolerated on the right lower extremity using a front-wheeled walker.) Catheters: Urethral 2 Way Taylor Assessment & Plan Impression Status post day #2 right hip dynamic screw. Patient doing very well, pain is well controlled, ambulating progress has been slow. Patient does have wheelchair access and significant accommodations at her sister's house and would like to plan on this if possible. She is out of town and will be returning to [facility]. She has been able to walk approximately 10 steps forward and backward. Definitely would like to go home and avoid a rehabilitation center if possible. Problems: Plan Patient will continue to work with physical therapy for gait training, weightbearing as tolerated with wheeled walker. Patient understands that though she has wheelchair accessible home, we would encourage her to get used to proper gait and safe transfers and ambulation prior to discharge. Patient will continue Lovenox 40 mg subcutaneous daily for 3 weeks for DVT prophylaxis, then take aspirin 325 mg by mouth twice a day for 3 more weeks. Patient will utilize Mobile as well as Vistaril for pain control. Dressing was changed today to simple island dressing. From an orthopedic perspective patient is ready to be discharged as soon as physical therapy clears her to do so. She does have a very safe environment and set up at home for the next 2 weeks when she is able to prove she can safely transfer and ambulate for the situation with the therapist. Thank you to the hospitalist team for managing her medical conditions. She is safe for discharge as soon as today or tomorrow when cleared. VTE Prophylaxis: Sub-Q Enoxaparin (Lovenox 40 mg subcutaneous daily 3 weeks postop with transition to ASA 325 mg EC by mouth twice a day for an additional 3 weeks totaling 6 weeks postoperative DVT prophylaxis.), SCDs, PETRA Mcneill Resuscitation Status: CPR: Attempt Resuscitation Eleno Shepherd PA-C Aug 09, 2016 14:00
--- NOTE | 2016-08-09 14:18 | PCM.PNMED ---
Subjective Date of Service Aug 09, 2016 Subjective Denies any new issues/complaints Exam Vital Signs Vital Sign - Last Date Time Temp Pulse Resp B/P Pulse Ox O2 Delivery O2 Flow Rate FiO2 08/09/16 11:53 36.5 89 18 95/55 92 08/09/16 11:30 Room Air 08/07/16 20:37 1.00 Intake and Output 08/08/16 08/08/16 08/09/16 Cumulative From/Thru 15:00 23:00 07:00 08/07/16 00:15 - 08/09/16 05:08 Intake Total 1040 ml 560 ml 5768 ml Output Total 1350 ml 1000 ml 4800 ml Balance -310 ml -440 ml 968 ml Intake Oral 1040 ml 560 ml 2840 ml IV Total 2928 ml Output Urine Total 1350 ml 1000 ml 4750 ml Estimated Blood Loss 50 ml # Voids 1 # Bowel Movements 0 Exam General: Alert, Cooperative, No Acute Distress Head: Normal Eyes: Scleral Anicteric Nose: Mucous Membr Moist/[place] Mouth: Mucous Membr Moist/[place] Neck: Supple Chest & Lungs: Chest Wall Normal, Clear to auscultation bilat Cardiovascular: Regular Rate/Rhythm Abdomen: Non-tender, Non-distended, Normoactive bowel tones, Soft Extremities: No cyanosis/clubbing/edema bilat Neurological: Grossly Neurologically Intact, Normal Speech IVs and Medications Medications Reviewed: Medications were reviewed in detail Lab and Diagnostics Result Diagram: 08/09/1651108/09/16511 Assessment & Plan 86-year-old female with a history of COPD with emphysema, current tobacco use, history of right hip fracture status post repair, and colonic bleed of uncertain etiology that has required transfusions in the past, presented to [facility] with ground-level fall secondary to poor footing. She was admitted for evaluation and treatment of what was found to be a right impacted subcapital fracture of the hip. # Acute right impacted subcapital fracture of hip, present on admission. - Post right intertrochanteric hip fracture on 08/07/16 - Appreciate ortho consult. Will followup with recommendations - Continue with post-op supportive care - PT - Weight-bear as tolerated on the right lower extremity using front-wheeled walker. - Continue Lovenox 40 mg subcutaneous daily 3 weeks postop with transition to ASA 325 mg twice a day for an additional 3 weeks totaling 6 weeks postoperative DVT prophylaxis. - Follow-up in 2 weeks at [facility] orthopedic clinic with mid-level provider for wound check and suture removal. - Follow-up in 6 weeks at [facility] orthopedic clinic with Dr. Haider Stern with AP pelvis and right crosstable lateral hip x-rays on arrival # Chronic anemia secondary to nonspecific colon abnormality. - H&H mildly less likely due to hemodilution - Possibly AVMs? Patient is unsure what the exact Dx is - GI: Dr. Jericho Jeronimo; procedure scheduled 08/10/2016 - Further followup as outpatient. # COPD with emphysema. Stable - Duoneb QIDWA + accuneb q2h prn # Restless leg syndrome, chronic. Managed - Continue home Requip # Severe protein-calorie malnutrition, chronic. Presumed stable - On admit: BMI 16; albumin 4.2 - Dietary consultation to improve nutrition Dispo: likely SNF tomorrow although patient insists that she wants to go home on discharge. GI Prophylaxis: Proton Pump Inhibitor VTE Prophylaxis: Sub-Q Enoxaparin (Lovenox 40 mg subcutaneous daily 3 weeks postop with transition to ASA 325 mg EC by mouth twice a day for an additional 3 weeks totaling 6 weeks postoperative DVT prophylaxis.), SCDs, PETRA Mcneill VTE Mechanical Devices: Intermittant Pneumatic CD Resuscitation Status: CPR: Attempt Resuscitation Timo West Aug 09, 2016 14:18
--- NOTE | 2016-08-09 15:48 | NUR ---
Social Work: Continued Discharge Planning Data: EMR reviewed. Pt is on day 2 of hospitalization for right hip fracture per H&P. Pt is not medically stable for discharge, anticipate discharge in 1-2 more days. SW met with pt and daughter Dina at bedside regarding discharge plan. PT continues to recommend SNF, SW reinforced this recommendation to pt. Pt has progress to ambulating 15ft with walker. PT continues to follow pt in the hospital. SW explained role of dual discharge planning and SNF referral. Pt and daughter agreeable that if pt cannot ambulate with walker and toilet independently at discharge, pt will discharge to SNF. SNF CHOICE LIST PROVIDED. Pt and daughter chose [facility] as choice, declined making second choice. UR Specialist made referral to [facility]. Paperwork in chart. PASRR in folder. SW to follow up with pt regarding PT recommendations and SNF referral. Assessment: Pt who may benefit from SNF but who is very hopeful she will discharge home with her daughter and outpt PT. Plan: Referral made to [facility]. Paperwork in chart, PASRR in folder. SW to continue to monitor PT notes and pt's progression. SW will continue to follow. Rhonda Middleton MSW
--- NOTE | 2016-08-09 15:58 | NUR ---
Evaluation completed. Please go to "Notes" then click on "Assessments and Notes" (bottom left corner of screen). Then select appropriate discipline tab on top of screen.
--- NOTE | 2016-08-09 16:46 | NUR ---
Activity/Pain Pt was up and oob to the [facility] and sat in the bedside chair this afternoon. Pt tolerated activity well. Will encourage pt to get oob for dinner also. Pain continues to be controlled with po pain medication. Care continues.
[2016-08-10 03:36] VITALS: PULSE 83
[2016-08-10] MEDS: hydrOXYzine Pamoate 25 mg Capsule PO PRN ×2 (04:14→12:45)
[2016-08-10] MEDS: HYDROcodone-APAP 5-325 mg Tablet PO PRN ×2 (04:14→12:44)
[2016-08-10] MEDS: Sodium Chloride LOK Flush 10 mL Syringe IV SCH ×2 (04:15→08:35)
--- NOTE | 2016-08-10 05:12 | NUR ---
Sleep Patient able to get ample rest as pain managed effectively with oral medications. Ambulates well with SBA. IV site asymptomatic and patent. Denies CP. SOB, and Abdominal discomfort at this time. Does complain of new onset left sided hip pain. Bed in low position, wheels locked and call light in place. will continue to monitor.
[2016-08-10 05:19] VITALS: BP 145/67; PULSE 91; RESP 16; O2SAT 98
[2016-08-10] MEDS ORDERED: Pantoprazole 40 mg ER24 Tablet PO SCH (06:30)
[2016-08-10 07:50] VITALS: PULSE 83; RESP 18; O2SAT 96
[2016-08-10] MEDS: Albuterol-Ipratropium 3 mL Inhalation Solution NEB SCH ×2 (07:56→12:07)
[2016-08-10 07:59] VITALS: BP 129/74; PULSE 78; RESP 18; O2SAT 100
[2016-08-10 08:00] VITALS: PULSE 80
[2016-08-10] MEDS: Senna-Docusate 8.6-50 mg Tablet PO SCH (08:32)
[2016-08-10] MEDS: 0.9% Sodium Chloride 1,000 ML IV SCH (08:43)
--- NOTE | 2016-08-10 09:23 | PCM.DIMED ---
Discharge Instructions Date of Service Aug 10, 2016 Dates of Hospitalization Aug 07, 2016 at 02:08 Discharge Diagnosis Discharge Diagnosis Primary diagnosis Acute right impacted subcapital fracture of hip Secondary diagnosis Chronic anemia COPD with emphysema. Restless leg syndrome Severe protein-calorie malnutrition, chronic. Diet No restrictions Activity Home Health Phyical Therapy Call your provider Weakness (unilateral) Patient Instructions Be careful when you return home, ask for help when trying to walk Take pain medications as instructed Follow-up Provider: Haider Spence DO Follow-up with PCP in: 2 weeks Aubrey Hoffman MD Aug 10, 2016 09:23
[2016-08-10] MEDS ORDERED: DOCU-41 PO (09:25)
[2016-08-10] MEDS ORDERED: HYDR-4003 PO (09:25)
--- NOTE | 2016-08-10 10:26 | PCM.PNORTH ---
Subjective Date of Service: Aug 10, 2016 Visit Information: Reason for Visit R Hip Fracture Surgery/Surgery Date R HIP ORIF 08/07/16 Post-Op Day # Date of Admission: Aug 07, 2016 at 02:08 Hospital Day # Subjective Status post day #3 right hip dynamic screw. Patient states she is doing really well, feels better than yesterday, ready to go home. She states she does not have a walker to use here, only has one at home in [place]. Postop General: No Complaints, No Shortness of Breath, No Chest Pain Pain Management: PO Objective Exam Objective Patient is alert and oriented 3. Answering questions appropriately. Patient is sitting at bedside and not in acute distress today. Dressing is clean dry and intact. Calf is soft and nontender. Sensation and pulses intact, patient able to wiggle toes. Vital Signs and I/O Vital Sign - Last Date Time Temp Pulse Resp B/P Pulse Ox O2 Delivery O2 Flow Rate FiO2 08/10/16 08:00 80 08/10/16 07:59 36.6 18 129/74 100 breathing treatment 08/10/16 07:50 2.00 Intake and Output 08/09/16 08/09/16 08/10/16 Cumulative From/Thru 15:00 23:00 07:00 08/07/16 00:15 - 08/10/16 05:19 Intake Total 1200 ml 560 ml 7528 ml Output Total 1450 ml 800 ml 7050 ml Balance -250 ml -240 ml 478 ml Intake Oral 1200 ml 560 ml 4600 ml IV Total 2928 ml Output Urine Total 1450 ml 800 ml 7000 ml Estimated Blood Loss 50 ml # Voids 1 # Bowel Movements 2 2 Result Diagram: 08/09/16 0512 08/09/16 0512 Activity: Activity per PT, Ambulate with PT (weightbearing as tolerated on the right lower extremity using a front-wheeled walker.) Catheters: Urethral 2 Way Taylor Assessment & Plan Impression Status post day #3 right hip dynamic screw. Patient cleared by physical therapy with home health recommendation, pain is well-controlled, ready to go home. Problems: Plan Patient will continue to work with physical therapy for gait training, weightbearing as tolerated with front wheeled walker. Patient will continue this with home health physical therapy.ge. Patient will continue Lovenox 40 mg subcutaneous daily for 3 weeks for DVT prophylaxis, then take aspirin 325 mg by mouth twice a day for 3 more weeks. Patient will utilize [place] as well as Vistaril for pain control. Continue to change the dressing as needed. You may keep discovered if desired until your two-week postoperative appointment. Follow-up in 2 weeks at [facility]. Patient is cleared for discharge to home with home health physical therapy and felt wheeled walker. Thank you to the hospitalist team for managing her medical conditions. She is safe for discharge. VTE Prophylaxis: Sub-Q Enoxaparin (Lovenox 40 mg subcutaneous daily 3 weeks postop with transition to ASA 325 mg EC by mouth twice a day for an additional 3 weeks totaling 6 weeks postoperative DVT prophylaxis.), SCDs, PETRA Mcneill Resuscitation Status: CPR: Attempt Resuscitation Eleno Shepherd PA-C Aug 10, 2016 10:26
--- NOTE | 2016-08-10 11:11 | NUR ---
Plan: Social Work- Readiness for Discharge/Discharge Data: EMR reviewed. Pt is on day 3 of hospitalization for right hip fracture per H&P. Per MD in multidisciplinary rounds, pt has progressed to home with PT and is cleared for discharge from a medical standpoint. SW spoke with pt at bedside regarding this, pt states that she is able to ambulate safely to her daughter's satisfaction and will be discharging home with home health PT with her daughter to transport via POV. HH CHOICE LIST PROVIDED. Pt has no preference for company, BRAYAN consulted rotating calendar and made referral to [facility]. F2F completed and provided to Marbin Norton, . Access given. Pt to discharge home with [facility] with daughter to transport via POV. Assessment: Pt who would benefit from [facility]. Plan: F2F provided to [facility]. Pt to discharge home with [facility], daughter to transport via POV. Rhonda Middleton MSW
[2016-08-10 12:00] VITALS: PULSE 70; RESP 18; O2SAT 94
--- NOTE | 2016-08-10 14:15 | NUR ---
Discharge Pt discharged at this time, All belongings gathered and returned to pt. VSS. No complains of increased pain. IV D/Cd intact, tele monitor removed. Hard copy of new scripts given to pt to fill. Discharge packet printed and reviewed with pt. Pt taken of [facility] by JOSE ANTONIO in wheelchair, to be transported home in private vehicle driven by daughter.
--- NOTE | 2016-08-11 01:21 | PCM.DC.MED ---
Discharge Summary Date of Service Aug 11, 2016 Dates of Hospitalization Date of Hospital Admission Aug 07, 2016 at 02:08 Date of Discharge: Aug 10, 2016 Providers: Admitting Physician: Tylor Iverson MD Primary Care Physician: Dalton Attending Physician: Tylor Iverson MD Diagnosis at Time of Discharge Diagnosis at Time of Discharge Primary diagnosis Acute right impacted subcapital fracture of hip Secondary diagnosis Chronic anemia COPD with emphysema. Restless leg syndrome Severe protein-calorie malnutrition, chronic. Consultations Orthopedic consult: Dr Spence Brief History Ms. Kraft is an extremely pleasant 86-year-old female with a history of COPD with emphysema, current tobacco use, history of right hip fracture status post repair, and colonic bleed of uncertain etiology that has required transfusions in the past, presented to [facility] with ground-level fall secondary to poor footing. She was admitted for evaluation and treatment of what was found to be a right impacted subcapital fracture of the hip. Hospital day 1 Ms. Kraft shares that she just arrived to [facility] a mere 30 minutes before her ground-level fall which brings her in this evening. She states when she arrived at her family's home, she needed to use the restroom, and on the way , she tripped over her granddaughter's item. Ms. Kraft denies striking her head , loss of consciousness, any other injuries. She notes that she has a pre- existing repair of her right hip, and that injury was also not sustained from episodes of syncope, dysrhythmia, or other biological entity. The initial injury was sustained from an external force which brought her to the ground and caused the fracture. Fracture was actually repaired locally, in [place], by Dr. Murray. For this episode, patient denies any associated fever, chills, nausea, vomiting, diarrhea, constipation, dysuria, acute vision changes, palpitations, chest pain, lightheadedness, or dizziness. She just arrived from [place], [place], which is where she has been residing over recent years. She shares that she is actually scheduled for a procedure at the [facility] this upcoming Saturday, 08/10, with Dr. Jericho Jeronimo. The procedure is described as a scope the only placed through her esophagus into her colon to stop a chronic and subclinical bleed. She is uncertain of the actual diagnosis , but she is in the [facility] to proceed with this procedure. Patient has not been on any blood thinners or aspirin. Other than her history of fall, restless legs, high blood pressure, and COPD with emphysema, she states she is rather healthy and independent at baseline. In the ED, T 36.6, pulse 89, respiratory rate 14, blood pressure 148/108, 98% on room air; initial labs revealed WBC 5.5, hemoglobin 13.0, hematocrit 38.2, platelets 239; CMP pending at time of admission; INR 0.94; UA obtained, negative for occult blood, nitrites, leukocyte esterase, and bacteria. She was in stable condition at time of admission awaiting transfer to floor. Hospital Course 86-year-old female with a history of COPD with emphysema, current tobacco use, history of right hip fracture status post repair, and colonic bleed of uncertain etiology that has required transfusions in the past, presented to [facility] with ground-level fall secondary to poor footing. She was admitted for evaluation and treatment of what was found to be a right impacted subcapital fracture of the hip. 1. Acute right impacted subcapital fracture of hip, present on admission. - Post right intertrochanteric hip fracture on 08/07/16 - Appreciate ortho consult. Will followup with recommendations - Continue with post-op supportive care - PT - Weight-bear as tolerated on the right lower extremity using front-wheeled walker. - Continue Lovenox 40 mg subcutaneous daily 3 weeks postop with transition to ASA 325 mg twice a day for an additional 3 weeks totaling 6 weeks postoperative DVT prophylaxis. - Follow-up in 2 weeks at [facility] orthopedic clinic with mid-level provider for wound check and suture removal. 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 - H&H mildly less likely due to hemodilution - Possibly AVMs? Patient is unsure what the exact Dx is - GI: Dr. Jericho Jeronimo; procedure scheduled 08/10/2016 - Further followup as outpatient. 3 COPD with emphysema. Stable without any acute exacerbation - Duoneb QIDWA + accuneb q2h prn 4 Restless leg syndrome, chronic. Managed - Continue home Requip 5 Severe protein-calorie malnutrition, chronic. Presumed stable - On admit: BMI 16; albumin 4.2 Exam Vital Signs (Last) Date Time Temp Pulse Resp B/P Pulse Ox O2 Delivery O2 Flow Rate FiO2 08/10/16 12:00 70 18 94 08/10/16 07:59 36.6 129/74 breathing treatment 08/10/16 07:50 2.00 Exam General: Alert, Cooperative, No Acute Distress Head: Normal Eyes: Scleral Anicteric Nose: Mucous Membrane Moist/Rupert Mouth: Mucous Membrane Moist/Rupert Neck: Supple Chest & Lungs: Chest Wall Normal, Clear to auscultation bilateral Cardiovascular: Regular Rate/Rhythm Abdomen: Non-tender, Non-distended, Normoactive bowel tones, Soft Extremities: No cyanosis/clubbing/edema bilateral Neurological: Grossly Neurologically Intact, Normal Speech Test 08/07/16 01:28 08/07/16 05:10 08/07/16 11:40 08/09/16 05:12 Prothrombin Time 10.0sec (8.1-12.5) Prothromb Time International Ratio 0.94ratio Activated Partial Thromboplast Time 27.1sec (22.8-33.0) Total Bilirubin 0.2mg/dL (0.0-1.2) Aspartate Amino Transf (AST/SGOT) 25U/L (0-50) Alanine Aminotransferase (ALT/SGPT) 18U/L (0-32) Alkaline Phosphatase 51U/L (25-165) Troponin T 0.010ug/L (0.0-0.011) Total Protein 6.5g/dL (6.4-8.4) Albumin 4.2g/dL (3.4-5.0) Lipase 41U/L (13-60) Phosphorus Level 3.7mg/dL (2.5-4.9) Magnesium Level 1.9mg/dL (1.6-2.6) Urine Color Yellow (YELLOW) Urine Appearance Clear (CLEAR,HAZY) Urine pH 6.0 (5.0-8.0) Urine Specific [place] 1.015 (1.003-1.035) Urine Protein Negativemg/dL (NEG,TRACE) Urine Glucose (UA) Negativemg/dL (NEGATIVE) Urine Ketones 15mg/dL (NEGATIVE) Urine Occult Blood Negative (NEGATIVE) Urine Nitrite Negative (NEGATIVE) Urine Bilirubin Negative (NEGATIVE) Urine Urobilinogen Normalmg/dL (NORMAL) Urine Leukocyte Esterase Negative (NEGATIVE) Urine RBC 0-2/hpf (0-2) Urine WBC 0-5/hpf (0-5) Urine Epithelial Cells Occasional/hpf (NONE-MOD) Urine Crystals None seen (NONE SEEN) Urine Bacteria None/hpf (NONE-FEW) Urine Hyaline Casts Occasional/lpf (NONE) Urine Granular Casts None seen (NONE SEEN) Urine Waxy Casts None seen (NONE SEEN) Urine Red Blood Cell Casts None seen (NONE SEEN) Urine White Blood Cell Casts None seen (NONE SEEN) Urine Mucus Present (None Seen) Urine Trichomonas None seen (NONE SEEN) Urine Yeast None (NONE SEEN) Urinalysis Comment None Urine Culture Reflexed Not indicated White Blood Count 5.6th/mm3 (3.8-10.1) Red Blood Count 3.14mil/mm3 (3.90-5.20) Hemoglobin 10.2g/dL (12.0-15.6) Hematocrit 30.4% (35.0-46.0) Mean Corpuscular Volume 96.8fL (81-100) Mean Corpuscular Hemoglobin 32.5pg (27.0-35.0) Mean Corpuscular Hemoglobin Concent 33.6% (32.0-37.0) Red Cell Distribution Width 12.8% (12.3-15.4) Platelet Count 168bil/L (150-400) Neutrophils (%) (Auto) 57.7% (40-74) Lymphocytes (%) (Auto) 18.9% (14-46) Monocytes (%) (Auto) 16.6% (4-12) Eosinophils (%) (Auto) 5.7% (0-5) Basophils (%) (Auto) 0.9% (0-3) Sodium Level 132mEq/L (134-144) Potassium Level 4.5mEq/L (3.5-5.2) Chloride Level 94mEq/L (97-108) Carbon Dioxide Level 25mmol/L (18-29) Blood Urea Nitrogen 7mg/dL (8-27) Creatinine 0.41mg/dL (0.57-1.00) Estimat Glomerular Filtration Rate 211mL/min (>59) Glucose Level 104mg/dL (60-99) Calcium Level 9.0mg/dL (8.5-10.1) Discharge Medications Discharge Medications Ascorbic Acid (Vitamin C) 500 Mg Capsule.er 500 MG PO BID (Reported) Calcium Carbonate/Vitamin D3 (Calcium 600 + Vit D3 800 Tab) 600 Mg-800 Tablet 2 EACH PO DAILY (Reported) Citalopram (Citalopram) 20 Mg Tablet 20 MG PO DAILY (Reported) Docusate Sodium (Colace) 100 Mg Capsule 100 MG PO BID Prescribed by: TYLOR IVERSON MD Ferrous Sulfate (Ferrous Sulfate) 325 Mg Tablet.dr 325 MG PO BID (Reported) Multivitamin (Once Daily) 1 Each Tablet 1 EACH PO DAILY (Reported) Pantoprazole DR (Pantoprazole DR) 40 Mg Tablet.dr 40 MG PO DAILY (Reported) Ropinirole (Ropinirole) 0.5 Mg Tablet 0.5 MG PO TID (Reported) Simvastatin (Simvastatin) 40 Mg Tablet 40 MG PO DAILY (Reported) Tiotropium [place] (Spiriva) 18 Mcg Cap.w.dev 18 MCG IH DAILY (Reported) Valsartan (Valsartan) 160 Mg Tablet 160 MG PO DAILY (Reported) Vit B Comp/C/FA/Iron/Vit E (Vitamin B Complex Tablet) 1 Each Tablet 1 EACH PO DAILY (Reported) As needed Albuterol Sulfate (Ventolin HFA Inhaler) 200 Puff/18 Gm Inhaler 1 PUFF INH Q4 PRN PRN For Wheezing (Reported) Alprazolam (Alprazolam) 0.5 Mg Tablet 0.5 MG PO TID PRN PRN For Anxiety ( Reported) Hydrocodone-Acetaminophen 5-325 mg (Hydrocodone-Acetaminophen 5-325 mg) 1 Each Tablet 1-2 TABLET PO Q4H PRN PRN For Moderate Pain Prescribed by: TYLOR IVERSON MD Ipratropium/Albuterol Sulfate (Iprat-Albut 0.5-3(2.5) mg/3 mL Inhalant Soln) 3 Ml Ampul.neb 3 ML IH Q6 PRN PRN For Shortness of Breath (Reported) Followup Plan Disposition: Home with home health Discharge Diet: No restrictions Discharge Activity: Home Health Phyical Therapy Patient Instructions Be careful when you return home, ask for help when trying to walk Take pain medications as instructed Follow-up Provider: Haider Spence DO Follow-up with PCP in: 2 weeks Time spent 33 minutes spend Tylor Iverson MD Aug 11, 2016 01:21
== END 2016-08-10 14:32 | disposition home health service (06) | DRG 480 ==
LOC: EDBD 23:23 → SED 23:23 → OSC 08-07 01:54
PROVIDERS: ADMIT Hospitalist; ATTEND Hospitalist
PROC: 0QS604Z Reposition Right Upper Femur with Internal Fixation Device, Open Approach (ICD-10-PCS; principal; 2016-08-07 08:45)
DX: S72.141A Displaced intertrochanteric fracture of right femur, initial encounter for closed fracture (principal); E43 Unspecified severe protein-calorie malnutrition; Z68.1 Body mass index [BMI] 19.9 or less, adult; D50.0 Iron deficiency anemia secondary to blood loss (chronic); J44.9 Chronic obstructive pulmonary disease, unspecified; F17.210 Nicotine dependence, cigarettes, uncomplicated; D64.9 Anemia, unspecified; G25.81 Restless legs syndrome; W18.30XA Fall on same level, unspecified, initial encounter